=== PATIENT | female | born 1965 | race Caucasian/White ===

== ENCOUNTER 2016-05-30 06:35 | Day surgery (SDC) | payer BC ==
[2016-05-29 13:26] LABS: HEMOGLOBIN 12.2 g/dL (12-16); MCH 30.2 pg (26.0-34.0); MCHC 33.9 g/dL (31.0-37.0); MCV 89.1 fL (80.0-100.0); MEAN PLATELET VOLUME 9.7 fL (7.4-10.4); RBC 4.04 10x6/uL (4.00-5.40); WBC 4.8 10x3/uL (4.8-10.8)
[2016-05-29 13:48] LABS: ANION GAP 12.4 mmol/L (8-16); CARBON DIOXIDE 31.3 mmol/L (21.0-32.0); CREATININE - SERUM 0.9 mg/dL (0.6-1.3); POTASSIUM - SERUM 3.7 mmol/L (3.5-5.1)
[~2016-05-30] VITALS: Ht 170.2 cm; Wt 92.1 kg
[~2016-05-30 06:35] MED LIST: AMBIEN10 MG PO; EVOXAC30 MG PO; LISINOPRIL-HCTZ1 T11 PO; NORVASC5 MG PO; PLAQUENIL200 MG PO; PRAVASTATIN SOD10 MG PO; VIBRAMYCIN 100100 MG PO; ZOLOFT100 MG PO
[2016-05-30 06:52] VITALS: BP 120/71; Ht 170.2 cm; Wt 92.1 kg
[2016-05-30 07:43] LABS: HCG URINE NEGATIVE (NEGATIVE)
--- NOTE | 2016-05-30 11:32 | NUR ---
1115-ESCORTED PT. TO PERSONAL VEHICLE, LEFT WITH DRIVING.
--- NOTE | 2016-07-16 10:17 | OP ---
PATIENT NAME: ARTURO FITZGERALD MEDICAL RECORD: [id number] :69 LOCATION:D.OPS ADMISSION DATE: SURGEON: VALERIY MCCLELLAND MD DATE OF OPERATION: 05/30/2016 PREOPERATIVE DIAGNOSIS: Right paraspinal back lipoma. POSTOPERATIVE DIAGNOSIS: Right paraspinal back lipoma. This was an intramuscular lipoma which has a higher chance of recurrence. PROCEDURE: Excision of right back lipoma, intramuscular. SURGEON: Valeriy Mcclelland MD WELLNESS SPECIALIST: None. BLOOD LOSS: Minimal. ANESTHESIA: General. COMPLICATIONS: None. The risks, possible complications and alternatives to procedure were explained to the patient. She elects to proceed. OPERATIVE COURSE: The patient was seen in the holding area. I was able to palpate the lipoma, which was difficult to palpate. The patient confirmed the location of the lipoma. I marked this with a magic marker. The nurse executive director global brand marketing was also present and felt the lipoma. The patient was conveyed to the operating room electively on 05/30/2016. General anesthesia was induced by anesthesia staff. The patient was positioned prone. A transverse incision was accomplished. I dissected down to the intramuscular lipomatous tissue. I the muscle, but I divided the none of the muscle. I removed the lipoma in a piecemeal fashion. It appeared pale and did appear different than the normal subcutaneous adipose tissue. I excised all the lipomatous tissue that I could identify. Meticulous hemostasis was achieved with electrocautery. Kathleen was added to the wound for additional hemostasis. The subdermis was approximated with interrupted 3-0 Vicryls. The skin was approximated with a running intracuticular 3-0 Vicryl. Benzoin and Steri-Strips were applied. The patient was then extubated and conveyed to post-anesthesia care unit, where she was in stable condition. I told her there would be a greater chance of recurrence of the lipomatous tissue as this is an intramuscular lipoma. Also, there is a chance she could develop divot at this site as the lipomatous tissue has displaced surrounding normal connective tissue. There is no need for her to follow up with me in the office. She works here at the [facility] [employer] I can see her here at the hospital and examined her in the presence of a nurse sometime in the next few weeks. TRANSINT:[id number] Voice Confirmation ID: [id number] DOCUMENT ID: [id number] OPERATIVE REPORT [id number] ARTURO FITZGERALD, VALERIY MCMAHON at 1017 CC: LUCRECIA PACHECO MD [id number] DICTATION DATE: 05/30/16 0957 FOUNDER AND PRESIDENT: 05/30/16 1026 [facility] 05/30/16 [place] [id number] [place] [id number]
--- NOTE | 2016-07-16 10:17 | HP ---
PATIENT: ARTURO FITZGERALD MEDICAL RECORD: [id number] ACCOUNT: [id number] LOCATION:[facility] : 69 ADMISSION DATE: 05/30/16 HISTORY AND PHYSICAL EXAMINATION CHIEF COMPLAINT: Lipoma. HISTORY OF PRESENT ILLNESS: The patient has a lipoma of the back. It is very difficult to feel. Preoperatively, I had the patient localized this. I felt it. The nurse deburring machine operator felt that. We marked the area. States it was difficult to feel, likely due to the depth of the lipoma. This is to the right of midline. It is rubbery. It is somewhat movable. ALLERGIES: No known drug allergies. HOME MEDICATIONS: Include Pravachol, Vibramycin, lisinopril, Zoloft, Plaquenil, Norvasc, and Ambien. SOCIAL HISTORY: Nonsmoker. PAST MEDICAL HISTORY AND PAST SURGICAL HISTORY: Insomnia, cholecystectomy, lap band, abdominoplasty, LASIK surgery, rheumatoid arthritis, hypertension, and history of lupus. REVIEW OF SYSTEMS: Negative for CVA or seizures. Negative for diabetes or thyroid problems. Review of systems is negative other than as is described above. The lipoma does cause pain. PHYSICAL EXAMINATION: GENERAL: The patient does not appear acutely ill. She does not appear chronically ill. VITAL SIGNS: Reviewed. HEAD: External ears appear normal. EYES: Extraocular movements are intact. NECK: Trachea is midline. CHEST: No intercostal retractions. PULMONARY: Nonlabored, no stridor. ABDOMEN: No peritonitis with movement. BACK: Lipoma as described above. IMPRESSION: Back lipoma. PLAN: Excision in the operating room. TRANSINT:[id number] Voice Confirmation ID: [id number] DOCUMENT ID: [id number] HISTORY AND PHYSICAL [id number] ELIZABETH FITZGERALDVALERIY DESHPANDE MD at 1017 CC: LUCRECIA PACHECO MD [id number] DICTATION DATE: 05/30/16 0949 SPEECH LANGUAGE PATHOLOGIST ASSISTANT: 05/30/16 1020 [facility] 05/30/16 [facility] [address] [place] [address]
== END 2016-05-30 11:15 | disposition home or self-care (01) ==
LOC: D.OPS 06:35 → D.PAN 08:00 → D.OPS 11:15
PROVIDERS: Anesthesiology; Surgery
DX: D17.9 Benign lipomatous neoplasm, unspecified (principal); G47.00 Insomnia, unspecified; M06.9 Rheumatoid arthritis, unspecified; I10 Essential (primary) hypertension; M32.9 Systemic lupus erythematosus, unspecified; Z98.84 Bariatric surgery status; Z79.899 Other long term (current) drug therapy